=== PATIENT | female | born 1955 | race Caucasian/White ===

== ENCOUNTER 2016-08-05 09:26 | Outpatient (CLI) | payer BC ==
[~2016-08-05 09:26] MED LIST: CAL-MAG-ZINC; MULTIPLE VITAMIN PO; RESTASIS0.05 % OP; SYNTHROID75 MCG PO
--- NOTE | 2016-08-05 10:33 | DIAGNOSTIC IMAGING REPORT ---
PROCEDURE: DEXA BONE DENSITY STUDY CLINICAL INDICATION: OSTEOPENIA COMPARISON: DEXA dated 05/12/2014 FINDINGS: LUMBAR SPINE: Bone mineral density 0.924 g/cm2, T score -1.1 osteopenia which represents a 0.4% improvement from the previous study LEFT HIP: Bone mineral density 0.920 g/cm2, T score -0.2 normal which represents a 2.6% decrease from the previous study LEFT FEMORAL NECK: Bone mineral density 0.733 g/cm2, T score -1.0 normal which represents a 1.6% improvement since the previous study FRACTURE RISK CALCULATION ( when applicable): 10-year fracture risk of a major osteoporotic fracture 7.5% and of a hip fracture 0.5% (T score greater or equal to -1.0 to: NORMAL) (T score from -1.1 to -2.4: OSTEOPENIA) (T score ess than or equal to -2.5: OSTEOPOROSIS) IMPRESSION: 1. Lumbar spine osteopenia with a 10-year fracture risk of 7.5% and a hip fracture risk of 0.5%
--- NOTE | 2016-08-13 09:57 | DIAGNOSTIC IMAGING REPORT ---
PROCEDURE: MG BILATERAL SCREENING W/CAD INDICATION: SCREENING TECHNIQUE: Bilateral CC and MLO digital views. COMPARISON: Mammograms 07/24/2015, 04/11/2014 and 05/12/2011. FINDINGS: Computer-aided detection applied. Mildly dense with a few scattered dystrophic calcifications. No change. IMPRESSION: 1. Negative mammogram RESULT CODE: 1- Negative. A. A negative report should not delay biopsy if a dominant or clinically suspicious mass is present. 10-15% of cancers are not identified by x-ray. B. A negative report may reinforce clinical impression. C. Adenosis and dense breasts may obscure an underlying neoplasm. D. False positive reports average 6-10%. E.. A yearly screening mammogram is recommended. A reminder letter will be scheduled.
== END 2016-08-05 23:00 ==
LOC: MAM SRH 09:26 → XR SRH 10:15 → MAM SRH 23:00
DX: Z12.31 Encounter for screening mammogram for malignant neoplasm of breast (principal); M85.88 Other specified disorders of bone density and structure, other site